=== PATIENT | female | born 1970 | race Caucasian/White ===

== ENCOUNTER 2023-10-21 09:57 | Inpatient (IN) | payer BC ==
--- NOTE | 2023-10-21 10:12 | ED ---
General Adult HPI - General Stated complaint: L Facial Numbness,NV Time Seen by Provider: 10/21/23 10:05 - History of Present Illness Initial comments: Dictation was produced using [employer] dictation software. please excuse any grammatical, word or spelling errors. Chief Complaint: 52-year-old female past medical history of stroke presents to the ER for vertigo and left facial numbness History of Present Illness: Is 52-year-old female she has past medical history of CVA and TIAs. States she will at approximately 8:00 AM. Patient states that she felt at baseline when she woke up. Then 30 minutes patient began having symptoms of vertigo and left facial numbness. Patient called EMS. According to EMS patient was vomiting severely. Patient has any headache. Denies any numbness or paresthesias or weakness in the extremities. She does complain of left lower facial paresthesias. States that her previous stroke deficits inv olved left side. States that she has vertigo at rest over worse when she moves her head. The ROS documented in this emergency department record has been reviewed and confirmed by me. Those systems with pertinent positive or negative responses have been documented in the HPI. All other systems are other negative and/or noncontributory. - Related Data Home Medications Medication Instructions Recorded Confirmed No Known Home Medications 10/21/23 10/21/23 Allergies Allergy/AdvReac Type Severity Reaction Status Date / Time No Known Allergies Allergy Verified 10/21/23 11:20 Review of Systems ROS Statement: Those systems with pertinent positive or pertinent negative responses have been documented in the HPI. ROS Other: All systems not noted in ROS Statement are negative. General Exam - General Exam Comments Initial Comments: PHYSICAL EXAM: General Impression: Alert and oriented x3, acute distress secondary to vomiting HEENT: Normocephalic atraumatic, extra-ocular movements intact, pupils equal and reactive to light bilaterally, mucous membranes moist. Cardiovascular: Heart regular rate and rhythm Chest: Able to complete full sentences, no retractions, no tachypnea Abdomen: abdomen soft, non-tender, non-distended, no organomegaly Musculoskeletal: Pulses present and equal in all extremities, no peripheral edema Motor: no focal deficits noted Neurological: Subjective sensory deficit to light touch of the left lower face, direction changing nystagmus, no focal motor or sensory deficits noted to the extremities Skin: Intact with no visualized rashes Psych: Normal affect and mood Course Vital Signs 10/21/23 10:32 Temperature 97.1 F L Pulse Rate 100 Respiratory 19 Rate Blood Pressure 152/88 O2 Sat by Pulse 91 L Oximetry - Reevaluation(s) Reevaluation #1: 10/21/23 10:52 A stroke patient. Case discussed with Dr. Parra of stroke at work. Patient not a candidate for stroke neurologist. Agree with recommendation. EKG Findings - EKG Comments: EKG Findings:: My EKG interpretation: Ventricular rate 73, sinus rhythm,. 181, QRS 81, QTC 418. No RI prolongation, no QTC prolongation, no ST or T-wave changes noted. No old EKG for comparison Overall, this EKG is unremarkable Medical Decision Making - Medical Decision Making Was pt. sent in by a medical professional or institution (, PA, LANDSCAPE FOREMAN, urgent care, hospital, or fpc...) When possible be specific @ -No Did you speak to anyone other than the patient for history (EMS, parent, family, police, friend...)? What history was obtained from this source @ -EMS as described above Did you review nursing and triage notes (agree or disagree)? Why? @ -I reviewed and agree with nursing and triage notes Were old charts reviewed (outside hosp., previous admission, EMS record, old EKG, old radiological studies, urgent care reports/EKG's, fpc records)? Report findings @ -No old charts were reviewed Differential Diagnosis (chest pain, altered mental status, abdominal pain women, abdominal pain men, vaginal bleeding, musculoskeletal, weakness, fever, dyspnea, syncope, headache, dizziness, GI bleed, back pain, seizure, CVA, palpatations, mental health)? @ - Differential CVA: Ischemic stroke, hemorrhagic stroke, brain tumor, atypical migraine, Wernicke's encephalopathy, seizure, multiple sclerosis, meningitis, encephalitis, hypoglycemia, Guillain-Estes, electrolytes disturbance, myasthenia gravis.... This is not meant to be an all-inclusive list EKG interpreted by me (3pts min.). @ -See above X-rays interpreted by me (1pt min.). @ -Chest x-ray shows no acute processes CT interpreted by me (1pt min.). @ -Computed tomography scan the brain shows no acute processes. CT angiography of the head and neck shows no large vessel occlusion U/S interpreted by me (1pt. min.). @ -None done What testing was considered but not performed or refused? (CT, X-rays, U/S, labs)? Why? @ -None What meds were considered but not given or refused? Why? @ -None Did you discuss the management of the patient with other professionals (professionals i.e. Dr., PA, LANDSCAPE FOREMAN, lab, RT, psych nurse, social worker clinical, admissions coordinator, teacher, commanding officer motorized squad, skilled nursing case manager)? Give summary @ -See above Was smoking cessation discussed for >3mins.? @ -No Was critical care preformed (if so, how long)? @ -, 33 minutes Were there social determinants of health that impacted care today? How? (Homelessness, low income, unemployed, alcoholism, drug addiction, transportation, low edu. Level, literacy, decrease access to med. care, [facility], rehab)? @ -No Was there de-escalation of care discussed even if they declined (Discuss DNR or withdrawal of care, Hospice)? DNR status @ -No What co-morbidities impacted this encounter? (DM, HTN, Smoking, COPD, CAD, Cancer, CVA, ARF, Chemo, Hep., AIDS, mental health diagnosis, sleep apnea, morbid obesity)? @ -History of CVA Was patient admitted / discharged? Hospital course, mention meds given and route, prescriptions, significant lab abnormalities, going to OR and other pertinent info. @ -52-year-old male presents emergency department for acute complaint of left lower facial weakness along with vertigo. Vital signs stable. NIH is 2. Patient had a candidate for outpatient place due to risk outweigh the benefits of alteplase administration. Vital signs stable. Patient's vertigo was treated with antivertigo medicines. CT brain is unremarkable. CT angiography shows no large vessel occlusion. Patient had a candidate for thrombectomy. There is concern for posterior CVA given that patient has a reaction changing nystagmus along with severe vertigo persisted at rest. Patient given aspirin. Patient admitted. Labs are unremarkable. Undiagnosed new problem with uncertain prognosis? @ -No Drug Therapy requiring intensive monitoring for toxicity (Heparin, Nitro, Insulin, Cardizem)? @ -No Were any procedures done? @ -No Diagnosis/symptom? Acute, or Chronic, or Acute on Chronic? Uncomplicated (with out systemic symptoms) or Complicated (systemic symptoms)? @ -Central vertigo Side effects of treatment? @ -No Exacerbation, Progression, or Severe Exacerbation? @ -No Poses a threat to life or bodily function? How? (Chest pain, USA, MT, pneumonia, PE, COPD, DKA, ARF, appy, cholecystitis, CVA, Diverticulitis, Homicidal, Suicidal, threat to staff... and all critical care pts) @ -yes - Lab Data Result diagrams: 10/21/23 10:15 10/21/23 10:15 Lab Results 10/21/23 10/21/23 10/21/23 Range/Units 10:15 10:15 10:15 WBC 10.7 H (3.8-10.6) k/uL RBC 4.98 (3.80-5.40) m/uL Hgb 13.9 (11.4-16.0) gm/dL Hct 42.0 (34.0-46.0) % MCV 84.3 (80.0-100.0) fL MCH 27.9 (25.0-35.0) pg MCHC 33.1 (31.0-37.0) g/dL RDW 14.6 (11.5-15.5) % Plt Count 232 (150-450) k/uL MPV 9.2 Neutrophils % 63 % Lymphocytes % 30 % Monocytes % 4 % Eosinophils % 2 % Basophils % 0 % Neutrophils # 6.7 (1.3-7.7) k/uL Lymphocytes # 3.2 (1.0-4.8) k/uL Monocytes # 0.4 (0-1.0) k/uL Eosinophils # 0.2 (0-0.7) k/uL Basophils # 0.0 (0-0.2) k/uL PT 10.1 (10.0-12.5) sec INR 0.9 (<1.2) APTT 20.6 L (22.0-30.0) sec Sodium 139 (137-145) mmol/L Potassium 3.9 (3.5-5.1) mmol/L Chloride 105 (98-107) mmol/L Carbon Dioxide 20 L (22-30) mmol/L Anion Gap 14 mmol/L BUN 10 (7-17) mg/dL Creatinine 0.53 (0.52-1.04) mg/dL Est GFR (CKD-EPI)AfAm >90 (>60 ml/min/1.73 sqM) Est GFR (CKD-EPI)NonAf >90 (>60 ml/min/1.73 sqM) Glucose 137 H (74-99) mg/dL Calcium 9.3 (8.4-10.2) mg/dL Total Bilirubin 0.5 (0.2-1.3) mg/dL AST 23 (14-36) U/L ALT 26 (4-34) U/L Alkaline Phosphatase 101 (38-126) U/L Creatine Kinase 57 (30-135) U/L Troponin I (0.000-0.034) ng/mL Total Protein 7.1 (6.3-8.2) g/dL Albumin 4.2 (3.5-5.0) g/dL 10/21/23 Range/Units 10:15 WBC (3.8-10.6) k/uL RBC (3.80-5.40) m/uL Hgb (11.4-16.0) gm/dL Hct (34.0-46.0) % MCV (80.0-100.0) fL MCH (25.0-35.0) pg MCHC (31.0-37.0) g/dL RDW (11.5-15.5) % Plt Count (150-450) k/uL MPV Neutrophils % % Lymphocytes % % Monocytes % % Eosinophils % % Basophils % % Neutrophils # (1.3-7.7) k/uL Lymphocytes # (1.0-4.8) k/uL Monocytes # (0-1.0) k/uL Eosinophils # (0-0.7) k/uL Basophils # (0-0.2) k/uL PT (10.0-12.5) sec INR (<1.2) APTT (22.0-30.0) sec Sodium (137-145) mmol/L Potassium (3.5-5.1) mmol/L Chloride (98-107) mmol/L Carbon Dioxide (22-30) mmol/L Anion Gap mmol/L BUN (7-17) mg/dL Creatinine (0.52-1.04) mg/dL Est GFR (CKD-EPI)AfAm (>60 ml/min/1.73 sqM) Est GFR (CKD-EPI)NonAf (>60 ml/min/1.73 sqM) Glucose (74-99) mg/dL Calcium (8.4-10.2) mg/dL Total Bilirubin (0.2-1.3) mg/dL AST (14-36) U/L ALT (4-34) U/L Alkaline Phosphatase (38-126) U/L Creatine Kinase (30-135) U/L Troponin I <0.012 (0.000-0.034) ng/mL Total Protein (6.3-8.2) g/dL Albumin (3.5-5.0) g/dL Disposition Clinical Impression: Cerebrovascular accident (CVA) Disposition: [facility] Condition: Fair Referrals: Nonstaff,Physician [Primary Care Provider] - 1-2 days Decision Time: 11:44
[2023-10-21 10:40] LABS: Basophils % (A) 0 %; Eosinophils # (A) 0.2 k/uL (0-0.7); Eosinophils % (A) 2 %; HGB 13.9 gm/dL (11.4-16.0); Lymphocytes # (A) 3.2 k/uL (1.0-4.8); Lymphocytes % (A) 30 %; MCH 27.9 pg (25.0-35.0); MCHC 33.1 g/dL (31.0-37.0); MCV 84.3 fL (80.0-100.0); Mean Platelet Volume 9.2; Monocytes # (A) 0.4 k/uL (0-1.0); Monocytes % (A) 4 %; Neutrophils # (A) 6.7 k/uL (1.3-7.7); Neutrophils % (A) 63 %; Platelet Count 232 k/uL (150-450); RBC 4.98 m/uL (3.80-5.40); RDW 14.6 % (11.5-15.5); WBC 10.7 k/uL (3.8-10.6)
--- NOTE | 2023-10-21 10:42 | XR ---
EXAMINATION TYPE: XR chest 2V DATE OF EXAM: 10/21/2023 10:37 AM CLINICAL INDICATION:Female, 52 years old with history of altered mental status; COMPARISON: None TECHNIQUE: XR chest 2V Frontal and lateral views of the chest. FINDINGS: Lungs/Pleura: There is no evidence of pleural effusion, focal consolidation, or pneumothorax. Pulmonary vascularity: Unremarkable. Heart/mediastinum: Cardiomediastinal silhouette is unremarkable. Musculoskeletal: No acute osseous pathology. IMPRESSION: No acute cardiopulmonary disease/process.
[2023-10-21 10:54] LABS: ALT 26 U/L (4-34); AST 23 U/L (14-36); African American GFR (CKD) >90 (>60 ml/min/1.73 sqM); Albumin 4.2 g/dL (3.5-5.0); Alkaline Phosphatase 101 U/L (38-126); Anion Gap 14 mmol/L; Blood Urea Nitrogen 10 mg/dL (7-17); Calcium 9.3 mg/dL (8.4-10.2); Carbon Dioxide 20 mmol/L (22-30); Chloride 105 mmol/L (98-107); Creatine Kinase 57 U/L (30-135); Glucose 137 mg/dL (74-99); Non-African American GFR(CKD) >90 (>60 ml/min/1.73 sqM); Potassium 3.9 mmol/L (3.5-5.1); Sodium 139 mmol/L (137-145); Total Bilirubin 0.5 mg/dL (0.2-1.3); Total Protein 7.1 g/dL (6.3-8.2)
[2023-10-21 10:56] LABS: INR 0.9 (<1.2); Partial Thromboplastin Time 20.6 sec (22.0-30.0); Prothrombin Time 10.1 sec (10.0-12.5)
--- NOTE | 2023-10-21 10:56 | CT ---
EXAMINATION TYPE: CT brain wo con CT DLP: 1091.5 mGycm, Automated exposure control for dose reduction was used. DATE OF EXAM: 10/21/2023 10:48 AM COMPARISON: None. CLINICAL INDICATION:Female, 52 years old with history of Neuro deficit, acute, stroke suspected, CODE STROKE TECHNIQUE: Brain: Axial CT images of the brain were obtained with coronal and sagittal reformats created and rev iewed. Contrast used: None. Oral contrast used: None. FINDINGS: Brain: Extra-axial spaces: No abnormal extra-axial fluid collections. Ventricular system: Within normal limits Cerebral parenchyma: No acute intraparenchymal hemorrhage or mass effect. The washing[place]-white junction is well differentiated. Cerebellum: Unremarkable. Mass effect: No evidence of midline shift. Intracranial vasculature: Atherosclerotic calcifications of the intracranial vessels. Soft tissues: Normal. Calvarium/osseous structures: No depressed skull fracture. Paranasal sinuses and mastoid air cells: Mild scattered paranasal sinus disease. Visualized orbits: Orbital contents are intact. IMPRESSION: No acute intracranial process.
--- NOTE | 2023-10-21 11:31 | CT ---
EXAMINATION TYPE: CT angio head neck DATE OF EXAM: 10/21/2023 COMPARISON: CT brain same day HISTORY: 52-year-old female neurologic deficit, acute, stroke suspected Neuro deficit, acute, stroke suspected TECHNIQUE: Contiguous axial scanning of the head and neck performed with IV Contrast, patient injecte d with 65 ml mL of Isovue 300. Coronal/sagittal MIP reconstructions performed. 3-D reconstructions ge nerated on a dedicated independent workstation. CT DLP: 778.8 mGycm Automated exposure control for dose reduction was used. FINDINGS: Neck: Left vertebral artery directly from the aortic arch. The right vertebral artery is slightly more daniella nant. Both vertebral arteries are patent throughout their course. The right common right internal carotid arteries are widely patent. The left common and left internal carotid arteries are widely patent. There may be an underlying nodule of the left thyroid gland measuring 1.1 cm that could be further ev aluated with outpatient thyroid ultrasound. Head: Dominant right vertebral artery. Otherwise, the vertebral and basilar arteries are patent. Patent thao ateral posterior communicating arteries are noted. Remainder of the posterior circulation also appear s patent. Hypoplastic left transverse sinus. Otherwise, dural venous sinuses appear patent. The bilateral internal carotid arteries as well as the remainder of the anterior circulation is paten t. No aneurysmal change is seen. IMPRESSION: 1. NECK: WIDELY PATENT VERTEBRAL AND CAROTID ARTERIES OF THE NECK. THERE IS ANATOMIC VARIATION WITH D IRECT TAKEOFF OF THE LEFT VERTEBRAL ARTERY DIRECTLY FROM THE AORTIC ARCH. DOMINANT RIGHT VERTEBRAL AR MARIELLE. 2. HEAD: NO LARGE VESSEL INTRACRANIAL ARTERIAL OCCLUSION, SIGNIFICANT STENOSIS, OR ANEURYSMAL CHANGE IS SEEN.
[2023-10-21] MEDS ORDERED: ASPIRIN 81 MG PO STA (11:34)
[2023-10-21] MEDS ORDERED: METOCLOPRAMIDE 5 MG/ML 2 ML VIAL IVP STA (11:37)
[2023-10-21] MEDS ORDERED: NALOXONE 0.4 MG/ML 1 ML VIAL IV PRN (11:40)
[2023-10-21] MEDS: SODIUM CHLORIDE 0.9% 1,000 ML IV SCH ×2 (12:40→20:13)
[2023-10-21] MEDS ORDERED: ACETAMINOPHEN TAB 325 MG TAB PO PRN (13:35)
[2023-10-21] MEDS ORDERED: ONDANSETRON 4 MG in SODIUM CHLORIDE 0.9% 50 ML IVPB PRN (13:35)
[2023-10-21] MEDS: ONDANSETRON 4 MG/2 ML VIAL IVP PRN ×2 (13:55→21:33)
[2023-10-21] MEDS: ATORVASTATIN 20 MG TAB PO SCH (13:55)
--- NOTE | 2023-10-21 14:29 | P.HPIM ---
History of Present Illness This is a pleasant 52 years old female with past medical history of multiple medical problems. She has history of stroke in 2012, at that time she had blurred vision and aphasia. Currently she is not taking any antiplatelet therap y. Patient presents because of new onset of vertigo and everything was spinning and she describes since 8:30 this morning. Also associated with numbness on her left side of the cheek and tongue happened at the same time. No headache, no weakness or numbness. No double vision or slurred speech. She's been vomiting for sleep in the way to the hospital, while she was in the emergency room also she threw up several times. She denies chest pain or dyspnea. No abdominal pain or diarrhea. No urinary complaints. She denies smoking or alcohol or illicit drugs. Patient is hemodynamically stable, blood pressure 151/90. Labs were unremarkable including CBC, INR, BMP, liver enzymes and troponin She is having marked increased WBCs 10.7. CT of the brain is negative for acute process CT of the head and neck is negative for acute process, no aneurysm or dilatation, no cervical fracture chest x-ray is negative for acute process EKG showing normal sinus rhythm at 73, no significant ST-T changes and QTC 418 Review of Systems Review of systems CONSTITUTIONAL: No fever, no malaise, no fatigue. HEENT: No recent visual problems or hearing problems. Denied any sore throat. CARDIOVASCULAR: No orthopnea, PND, no palpitations, no syncope. PULMONARY: No shortness of breath, no cough, no hemoptysis. GASTROINTESTINAL: No diarrhea, no nausea, no vomiting, no abdominal pain. Normoactive bowel sounds. NEUROLOGICAL: No headaches, no weakness, no numbness. HEMATOLOGICAL: Denies any bleeding or petechiae. GENITOURINARY: Denies any burning micturition, frequency, or urgency. MUSCULOSKELETAL/RHEUMATOLOGICAL: Denies any joint pain, swelling, or any muscle pain. ENDOCRINE: Denies any polyuria or polydipsia. Past Medical History Past Medical History: CVA/TIA History of Any Multi-Drug Resistant Organisms: None Reported Past Surgical History: Hysterectomy Smoking Status: Never smoker Past Alcohol Use History: Occasional Past Drug Use History: None Reported Medications and Allergies Home Medications Medication Instructions Recorded Confirmed Type No Known Home Medications 10/21/23 10/21/23 History Allergies Allergy/AdvReac Type Severity Reaction Status Date / Time No Known Allergies Allergy Verified 10/21/23 11:20 Physical Exam Vitals: Vital Signs Temp Pulse Resp BP Pulse Ox 10/21/23 13:00 72 17 156/91 97 10/21/23 12:00 151/90 10/21/23 11:37 100 168/71 97 10/21/23 10:32 97.1 F L 100 19 152/88 91 L Intake and Output 10/20/23 10/21/23 10/21/23 22:59 06:59 14:59 Other: Weight 108.862 kg GENERAL: The patient is alert and oriented x3, not in any acute distress. Well developed, well nourished. HEENT: Pupils are round and equally reacting to light. EOMI. No scleral icterus. No conjunctival pallor. Normocephalic, atraumatic. No pharyngeal erythema. No thyromegaly. CARDIOVASCULAR: S1 and S2 present. No murmurs, rubs, or gallops. PULMONARY: Chest is clear to auscultation, no wheezing , no crackles. ABDOMEN: Soft, nontender, nondistended, normoactive bowel sounds. No palpable organomegaly. MUSCULOSKELETAL: No joint swelling or deformity. EXTREMITIES: No cyanosis, clubbing, or pedal edema. NEUROLOGICAL: Gross neurological examination did not reveal any focal deficits. SKIN: No rashes. no petechiae. Results CBC & Chem 7: 10/21/23 10:15 10/21/23 10:15 Labs: Abnormal Lab Results - Last 24 Hours (Table) 10/21/23 10/21/23 10/21/23 Range/Units 10:15 10:15 10:15 WBC 10.7 H (3.8-10.6) k/uL APTT 20.6 L (22.0-30.0) sec Carbon Dioxide 20 L (22-30) mmol/L Glucose 137 H (74-99) mg/dL Assessment and Plan Assessment: Acute onset of vertigo and left-sided facial numbness suspicious for stroke Recurrent vomiting could be secondary to above Dehydration secondary to above Obesity with BMI of 36.5. History of stroke/TIA Permissive hypertension Plan: Start aspirin 81 mg, patient got 325 mg 1 in the emergency room Start Lipitor 20 mg Check KUB Neurology consult Labs and medication were reviewed.. Continue same treatment. Continue with symptomatic treatment. Resume home medication. Monitor labs and vitals. DVT and GI prophylaxis. Further recommendations as per clinical course of the patient DVT prophylaxis: Subcutaneous heparin GI Prophylaxis: Pepcid PT/OT: Pending Prognosis is guarded
--- NOTE | 2023-10-21 17:01 | XR ---
EXAMINATION TYPE: XR KUB DATE OF EXAM: 10/21/2023 3:06 PM CLINICAL INDICATION:Female, 52 years old with history of Vomiting; COMPARISON: None. TECHNIQUE: One radiographic view of the abdomen was obtained. FINDINGS: The bowel gas pattern is nonspecific without dilated loops of small or large bowel. There i s no evidence for organomegaly or pneumoperitoneum. The osseous structures are intact. No abnormal calcifications are present. Fecal material and gas are demonstrated throughout the colon and rectum. Right lower quadrant cholecystectomy clips. Excreted IV contrast within the urinary bladder. IMPRESSION: Nonspecific bowel gas pattern without radiographic evidence for acute process.
--- NOTE | 2023-10-21 17:40 | P.CNNES ---
History of Present Illness Consult date: 10/21/23 Requesting physician: Dorian Ruff Reason for Consult: code stroke, vertigo and left facial numbness History of Present Illness: This is a 52-year-old woman who presented emergency department because of dizziness and the numbness. Patient states that the around 8:45 AM today she noticed that that she's having dizziness as well as numbness over the left tongue. Prior to that she was doing well earlier in the morning. She does have nausea and vomiting. She feels the dizziness is if the room is spinning and the is alleviated with resting. She has chronic ringing of the ear. Denies of any focal weakness denies of any other numbness. She states that she had history of TIA in the past in which he had visual disturbance and speech difficulty years back. She has hypercholesteremia. Some of the workup during his hospital visit consisted of: CT of the head was negative for any acute processes. CT angiography of the head and neck did not show any large vessel occlusion. A code stroke was activated by ED team. NIH stroke scale was a 2. No IV TPA since the risk outweighed the benefit per the ED team. Review of Systems Review of system: The 12 point system was reviewed and apparent positive and negative per HPI. Past Medical History Past Medical History: CVA/TIA History of Any Multi-Drug Resistant Organisms: None Reported Past Surgical History: Hysterectomy Smoking Status: Never smoker Past Alcohol Use History: Occasional Past Drug Use History: None Reported Medications and Allergies Home Medications Medication Instructions Recorded Confirmed Type No Known Home Medications 10/21/23 10/21/23 History Allergies Allergy/AdvReac Type Severity Reaction Status Date / Time No Known Allergies Allergy Verified 10/21/23 11:20 Physical Examination - Vital Signs Vital Signs: Vital Signs Temp Pulse Resp BP Pulse Ox 10/21/23 14:21 70 18 150/88 96 10/21/23 14:00 85 18 154/87 96 10/21/23 13:51 85 18 154/87 96 10/21/23 13:21 70 17 152/78 97 10/21/23 13:00 72 17 156/91 97 10/21/23 12:51 77 18 150/84 96 10/21/23 12:21 71 17 163/88 96 10/21/23 12:00 151/90 10/21/23 11:51 83 18 153/76 97 10/21/23 11:37 100 168/71 97 10/21/23 11:36 73 18 168/71 96 10/21/23 11:21 73 18 168/71 95 10/21/23 11:06 82 18 148/78 10/21/23 10:51 73 17 146/78 10/21/23 10:36 156/117 10/21/23 10:32 97.1 F L 100 19 152/88 91 L 10/21/23 10:06 82 18 145/110 Intake and Output 10/21/23 10/21/23 10/21/23 06:59 14:59 22:59 Other: Weight 108.862 kg GENERAL: The patient is lying in bed and is not in acute distress.. NEUROLOGICAL: Higher mental function: The patient is awake, alert, oriented to self, place and time. Patient is following commands. No aphasia and no neglect. Cranial nerves: The pupils are round, equal and reactive to light. Visual field s are full to confrontation throughout. Extraocular movement is rotatory nystagmus looking to right and left. Facial sensation is normal to touch throughout. The facial strength is normal throughout. Hearing is normal bilaterally to hand rub. Tongue is midline and moved [id number] without any difficulty. No dysarthria is noted. Shoulder shrug is normal bilaterally. Motor: The strength is unable to assess individual muscle strength because of her cooperation but lifting all extremities above gravity and appears symmetrical. Normal tone and bulk. Cerebellum: Normal finger to nose bilaterally. Sensation: Sensation is normal to touch throughout. Reflexes (right/left): 2+ throughout. Plantars are downgoing bilaterally. Results - Laboratory Findings CBC and BMP: 10/21/23 10:15 10/21/23 10:15 Abnormal Lab Findings: Abnormal Labs 10/21/23 10/21/23 10/21/23 10:15 10:15 10:15 WBC 10.7 H APTT 20.6 L Carbon Dioxide 20 L Glucose 137 H Assessment and Plan Assessment: This is a 52-year-old woman who presents because of dizziness and numbness. She states she has numbness over left side of the tongue. Her dizziness is mostly with movement and she feels the room is spinning. She has nausea vomiting. On examination she has nystagmus looking to the right and left. Acute vertigo with numbness: Probable acute ischemic stroke. Rule out peripheral vertigo. Denies stroke scale in the ED is to know IV TPA because of the risk outweighed the benefit History of TIA Plan: I ordered MRI of the brain with and without. Patient was given aspirin 325 once in the ED. Patient was started on aspirin 81 mg by the primary team as well as Lipitor 20 mg daily. The patient was not on any antiplatelets prior to this. If the patient does have stroke will start the patient on dual antiplatelet of aspirin and Plavix. Ordered lipid panel, 2-D echo Continue neuro checks Cardiac monitoring PT OT and SHOT PACKER are consulted Patient was given Valium 5 mg once by the ED team. I showed the patient on meclizine 25 mg 1 tablet 4 times a day scheduled for 7 days and after that when necessary. She is on Zofran 4 mg when necessary. We'll defer the rest of the medical measure the primary team For DVT prophylaxis the patient was started on subcu heparin 5000 units every 12 hours The plan was discussed with the patient and the primary attending Thank you consultation. Time with Patient: Greater than 30
[2023-10-21] MEDS: MECLIZINE 25 MG TAB PO SCH ×2 (20:12→21:38)
[2023-10-21 20:54] LABS: Glucose,Whole Blood 150 mg/dL (70-110)
[2023-10-21] MEDS: HEPARIN SODIUM,PORCINE 5,000 UNIT/ML 1 ML VIAL SQ SCH (21:36)
[2023-10-21] MEDS: FAMOTIDINE 20 MG/2 ML VIAL IV SCH (21:50)
[2023-10-22 02:28] LABS: Chol/HDL Ratio 3.94 Ratio; LDL Cholesterol,Calculated 105.4 mg/dL (0.0-131.0)
[2023-10-22] MEDS: SODIUM CHLORIDE 0.9% 1,000 ML IV SCH ×3 (06:35→21:12)
[2023-10-22 07:21] LABS: Basophils % (A) 0 %; Eosinophils % (A) 0 %; HCT 37.3 % (34.0-46.0); HGB 12.6 gm/dL (11.4-16.0); Lymphocytes # (A) 1.7 k/uL (1.0-4.8); Lymphocytes % (A) 14 %; MCH 28.8 pg (25.0-35.0); MCHC 33.8 g/dL (31.0-37.0); MCV 85.1 fL (80.0-100.0); Mean Platelet Volume 9.5; Monocytes # (A) 0.7 k/uL (0-1.0); Monocytes % (A) 5 %; Neutrophils # (A) 9.6 k/uL (1.3-7.7); Neutrophils % (A) 79 %; Platelet Count 215 k/uL (150-450); RBC 4.38 m/uL (3.80-5.40); RDW 14.6 % (11.5-15.5); WBC 12.2 k/uL (3.8-10.6)
[2023-10-22 07:48] LABS: African American GFR (CKD) >90 (>60 ml/min/1.73 sqM); Anion Gap 11 mmol/L; Blood Urea Nitrogen 11 mg/dL (7-17); Calcium 8.2 mg/dL (8.4-10.2); Carbon Dioxide 23 mmol/L (22-30); Chloride 104 mmol/L (98-107); Glucose 119 mg/dL (74-99); Non-African American GFR(CKD) >90 (>60 ml/min/1.73 sqM); Potassium 4.1 mmol/L (3.5-5.1); Sodium 138 mmol/L (137-145)
[2023-10-22] MEDS ORDERED: ONDANSETRON 4 MG/2 ML VIAL IVP PRN (08:05)
[2023-10-22] MEDS: ATORVASTATIN 20 MG TAB PO SCH (09:23)
[2023-10-22] MEDS: MECLIZINE 25 MG TAB PO SCH ×4 (09:23→21:11)
[2023-10-22] MEDS: HEPARIN SODIUM,PORCINE 5,000 UNIT/ML 1 ML VIAL SQ SCH ×2 (09:23→21:11)
[2023-10-22] MEDS: FAMOTIDINE 20 MG/2 ML VIAL IV SCH ×2 (09:23→21:11)
[2023-10-22] MEDS: ASPIRIN 81 MG PO SCH (09:23)
[2023-10-22] MEDS ORDERED: LORazepam 2 MG/ML INJ IV ONE (09:46)
--- NOTE | 2023-10-22 11:45 | P.PN ---
Subjective This is a pleasant 52 years old female with past medical history of multiple medical problems. She has history of stroke in 2012, at that time she had blurred vision and aphasia. Currently she is not taking any antiplatelet therapy. Patient presents because of new onset of vertigo and everything was spinning and she describes since 8:30 this morning. Also associated with numbness on her left side of the cheek and tongue happened at the same time. No headache, no weakness or numbness. No double vision or slurred speech. She's been vomiting for sleep in the way to the hospital, while she was in the emergency room also she threw up several times. She denies chest pain or dyspnea. No abdominal pain or diarrhea. No urinary complaints. She denies smoking or alcohol or illicit drugs. Patient is hemodynamically stable, blood pressure 151/90. Labs were unremarkable including CBC, INR, BMP, liver enzymes and troponin She is having marked increased WBCs 10.7. CT of the brain is negative for acute process CT of the head and neck is negative for acute process, no aneurysm or dilatation, no cervical fracture chest x-ray is negative for acute process EKG showing normal sinus rhythm at 73, no significant ST-T changes and QTC 418 10/22/2023 Patient still complaining of vertigo, still complaining of numbness in her left side of the face and her lips. Take her meclizine because of her severe nausea vomiting, she could not eat as well. Zofran 4 mg was not helping therefore we increased the dose to 8 mg, after that I checked with the bedside nurse and looks like patient started to respond to this treatment therefore we'll keep monitoring for now. KUB yesterday was negative for diagnostic process. WBCs 12,000, TSH normal 0.8 MRI of the brain and echocardiogram are pending She remains on normal saline with 30 mL per hour, baby aspirin 81 mg Lipitor Plan of care discussed with the patient and bedside nurse Review of systems CONSTITUTIONAL: No fever, no malaise, no fatigue. HEENT: No recent visual problems or hearing problems. Denied any sore throat. CARDIOVASCULAR: No orthopnea, PND, no palpitations, no syncope. PULMONARY: No shortness of breath, no cough, no hemoptysis. GASTROINTESTINAL: No diarrhea, no nausea, no vomiting, no abdominal pain. Normoactive bowel sounds. Active Medications Generic Name Dose Route Start Last Admin Trade Name Freq PRN Reason Stop Dose Admin Acetaminophen 325 mg 10/21/23 13:35 Acetaminophen Tab 325 Mg Tab PO Q6HR PRN Fever and/ or Pain Aspirin 81 mg 10/22/23 09:00 10/22/23 09:23 Aspirin 81 Mg PO 81 mg DAILY LETICIA Administration Atorvastatin Calcium 20 mg 10/21/23 13:45 10/22/23 09:23 Atorvastatin 20 Mg Tab PO 20 mg DAILY LETICIA Administration Famotidine 20 mg 10/21/23 21:00 10/22/23 09:23 Famotidine 20 Mg/2 Ml Vial IV 20 mg Q12HR LETICIA Administration Heparin Sodium (Porcine) 5,000 unit 10/21/23 21:00 10/22/23 09:23 Heparin Sodium,Porcine 5,000 Unit/Ml 1 Ml Vial SQ 5,000 unit Q12HR LETICIA Administration Sodium Chloride 1,000 mls @ 130 mls/hr 10/21/23 11:45 10/22/23 06:35 Saline 0.9% IV 130 mls/hr .[id number] LETICIA Administration Meclizine HCl 25 mg 10/21/23 18:00 10/22/23 09:23 Meclizine 25 Mg Tab PO 25 mg QID LETICIA Administration Naloxone HCl 0.2 mg 10/21/23 11:40 Naloxone 0.4 Mg/Ml 1 Ml Vial IV Q2M PRN Opioid Reversal Ondansetron HCl 8 mg 10/22/23 08:05 10/22/23 09:23 Ondansetron 4 Mg/2 Ml Vial IVP 8 mg Q8HR PRN Administration Nausea And Vomiting Objective - Vital Signs Vital signs: Vital Signs Temp 98.2 F 10/22/23 04:00 Pulse 96 10/22/23 04:00 Resp 16 10/22/23 04:00 BP 127/79 10/22/23 04:00 Pulse Ox 96 10/22/23 04:00 FiO2 Intake & Output 10/21/23 10/22/23 10/22/23 18:59 06:59 18:59 Output Total 1000 Balance -1000 Weight 108.862 kg 108.862 kg Output: Urine 1000 Straight 1000 Other: Voiding Method External Catheter # Bowel Movements 0 - Exam GENERAL: The patient is alert and oriented x3, not in any acute distress. Well developed, well nourished. HEENT: Pupils are round and equally reacting to light. EOMI. No scleral icterus. No conjunctival pallor. Normocephalic, atraumatic. No pharyngeal erythema. No thyromegaly. CARDIOVASCULAR: S1 and S2 present. No murmurs, rubs, or gallops. PULMONARY: Chest is clear to auscultation, no wheezing , no crackles. ABDOMEN: Soft, nontender, nondistended, normoactive bowel sounds. No palpable organomegaly. MUSCULOSKELETAL: No joint swelling or deformity. EXTREMITIES: No cyanosis, clubbing, or pedal edema. NEUROLOGICAL: Gross neurological examination did not reveal any focal deficits. SKIN: No rashes. no petechiae. - Labs CBC & Chem 7: 10/22/23 07:07 10/22/23 07:07 Labs: Abnormal Lab Results - Last 24 Hours (Table) 10/21/23 10/21/23 10/22/23 Range/Units 10:33 20:48 07:07 WBC 12.2 H (3.8-10.6) k/uL Neutrophils # 9.6 H (1.3-7.7) k/uL Glucose (74-99) mg/dL POC Glucose (mg/dL) 150 H (70-110) mg/dL Calcium (8.4-10.2) mg/dL Triglycerides 208.00 H (0.00-149.00) mg/dL VLDL Cholesterol, Calc 41.60 H (5.00-40.00) mg/dL 10/22/23 Range/Units 07:07 WBC (3.8-10.6) k/uL Neutrophils # (1.3-7.7) k/uL Glucose 119 H (74-99) mg/dL POC Glucose (mg/dL) (70-110) mg/dL Calcium 8.2 L (8.4-10.2) mg/dL Triglycerides (0.00-149.00) mg/dL VLDL Cholesterol, Calc (5.00-40.00) mg/dL Assessment and Plan Assessment: Acute onset of vertigo and left-sided facial numbness suspicious for stroke Recurrent vomiting could be secondary to above Dehydration secondary to above Obesity with BMI of 36.5. History of stroke/TIA Permissive hypertension Plan: c/w aspirin 81 mg Start Lipitor 20 mg Follow-up echocardiogram and MRI of the brain Neurology consult Zofran 8 mg Labs and medication were reviewed.. Continue same treatment. Continue with symptomatic treatment. Resume home medication. Monitor labs and vitals. DVT and GI prophylaxis. Further recommendations as per clinical course of the patient DVT prophylaxis: Subcutaneous heparin GI Prophylaxis: Pepcid PT/OT: Pending Prognosis is guarded
--- NOTE | 2023-10-22 11:51 | CA ---
Transthoracic Echo Report Name: Patti Sánchez Age: 52 Gender: F : 1970 Exam Date: 10/22/2023 08:35 Exam Location: [place] [facility] Ht (in): 68 Wt (lb): 240 Ordering Physician: Keron Garza MD Attending/Referring Phys: Lesson Instructor Laverne Radford [facility] Procedure CPT: Indications: stroke Cardiac Hx: Technical Quality: Technically difficult study Contrast 1: Agitated Saline Total Dose (mL): 5 Contrast 2: Total Dose (mL): MEASUREMENTS (Male / Female) Normal Values 2D ECHO LV Diastolic Diameter PLAX 4.3 cm 4.2 - 5.9 / 3.9 - 5.3 cm LV Systolic Diameter PLAX 2.9 cm IVS Diastolic Thickness 0.9 cm 0.6 - 1.0 / 0.6 - 0.9 cm LVPW Diastolic Thickness 0.9 cm 0.6 - 1.0 / 0.6 - 0.9 cm LV Relative Wall Thickness 0.4 LVOT Diameter 2.0 cm Ascending Aorta Diameter 3.0 cm M-MODE Aortic Root Diameter MM 2.4 cm LA Systolic Diameter MM 2.5 cm LA Ao Ratio MM 1.1 AV Cusp Separation MM 1.6 cm DOPPLER AV Peak Velocity 174.2 cm/s AV Peak Gradient 12.1 mmHg AV Mean Velocity 117.9 cm/s AV Mean Gradient 6.4 mmHg AV Velocity Time Integral 32.1 cm LVOT Peak Velocity 119.5 cm/s LVOT Peak Gradient 5.7 mmHg LVOT Velocity Time Integral 26.0 cm LVOT Stroke Volume 80.5 cm??? LVOT Stroke Volume Index 36.5 ml/m??? LVOT Cardiac Index 2696.8 cm???/min???m??? AV Area Cont Eq vti 2.5 cm??? AV Area Cont Eq pk 2.1 cm??? Mitral E Point Velocity 90.1 cm/s Mitral A Point Velocity 91.6 cm/s Mitral E to A Ratio 1.0 MV Deceleration Time 221.3 ms LV E' Lateral Velocity 9.5 cm/s Mitral E to LV E' Lateral Ratio 9.5 LV E' Septal Velocity 8.1 cm/s Mitral E to LV E' Septal Ratio 11.2 TR Peak Velocity 263.4 cm/s TR Peak Gradient 27.7 mmHg Right Atrial Pressure 8.0 mmHg Pulmonary Artery Systolic Pressu 35.7 mmHg Right Ventricular Systolic Press 35.7 mmHg FINDINGS Left Ventricle Left ventricular wall thickness normal. Left ventricular cavity size normal. Normal left ventricular systolic function with no obvious regional wall motion abnormalities. Left ventricular ejection fraction is estimated at 55-60%. Right Ventricle Right ventricle not well visualized. Right Atrium Normal right atrial size. Negative agitated saline bubble study for right to left shunt. Left Atrium Normal left atrial size. Mitral Valve Mitral valve thickened. Mild mitral regurgitation. Aortic Valve Trileaflet aortic valve. No aortic regurgitation. Tricuspid Valve Tricuspid valve not well visualized. [id number] tricuspid regurgitation. Pulmonic Valve Pulmonic valve not well visualized. Trace pulmonic regurgitation. Pericardium No pericardial effusion. Aorta Normal size aortic root and proximal ascending aorta. CONCLUSIONS Left ventricular ejection fraction 55-60% Negative bubble study Mild mitral regurgitation [id number] tricuspid regurgitation No pericardial effusion Previewed by: Dr. Calvin Hinson DO (Electronically Signed) Final Date: 22 October 2023 11:51
--- NOTE | 2023-10-22 14:52 | P.PN ---
Subjective Progress Note Date: 10/22/23 I am following-up with patient and she states she is feeling better. She feels dizziness is improving compared to yesterday. Also nausea and vomiting is improving. Still has numbness on left side of tongue. Denies any focal weakness. Objective - Vital Signs Vital signs: Vital Signs Temp 98.4 F 10/22/23 12:00 Pulse 80 10/22/23 12:00 Resp 16 10/22/23 12:00 BP 139/84 10/22/23 12:00 Pulse Ox 98 10/22/23 12:00 FiO2 Intake & Output 10/21/23 10/22/23 10/22/23 18:59 06:59 18:59 Intake Total 118 Output Total 1000 Balance -1000 118 Weight 108.862 kg 108.862 kg Intake: Oral 118 Output: Urine 1000 Straight 1000 Other: Voiding Method External Catheter External Catheter # Bowel Movements 0 - Exam GENERAL: The patient is sitting in a recliner chair and is not in acute distress. NEUROLOGICAL: Higher mental function: The patient is awake, alert, oriented to self, place and time. Patient is following commands. No aphasia and no neglect. Cranial nerves: The pupils are round, equal and reactive to light. Visual gutierrez are full to confrontation throughout. Extraocular movement is intact and no nystagmus Facial sensation is normal to touch throughout. The facial strength is normal throughout. Tongue is midline and moved [id number] without any difficulty. No dysarthria is noted. Shoulder shrug is normal bilaterally. Motor: The strength is 5/5 throughout. Normal tone and bulk. Cerebellum: Normal finger to nose and heel to george bilaterally. Sensation: Sensation is normal to touch throughout. Reflexes (right/left): 2+ throughout. Plantars are downgoing bilaterally. Some of the workup during this hospital visit consisted of: Lipid panel triglycerides 28, cholesterol is 197, LDL is 105 and HDL is 50 TSH is 0.884 [address]c is 5.6. CT of the head was negative for any acute processes. CT angiography of the head and neck did not show any large vessel occlusion. 2D Echo was reported as ejection fraction of 55-60%. Negative bubble study. Mild to moderate tricuspid regurgitation. - Labs CBC & Chem 7: 10/22/23 07:07 10/22/23 07:07 Labs: Abnormal Lab Results - Last 24 Hours (Table) 10/21/23 10/21/23 10/22/23 Range/Units 10:33 20:48 07:07 WBC 12.2 H (3.8-10.6) k/uL Neutrophils # 9.6 H (1.3-7.7) k/uL Glucose (74-99) mg/dL POC Glucose (mg/dL) 150 H (70-110) mg/dL Calcium (8.4-10.2) mg/dL Triglycerides 208.00 H (0.00-149.00) mg/dL VLDL Cholesterol, Calc 41.60 H (5.00-40.00) mg/dL 10/22/23 Range/Units 07:07 WBC (3.8-10.6) k/uL Neutrophils # (1.3-7.7) k/uL Glucose 119 H (74-99) mg/dL POC Glucose (mg/dL) (70-110) mg/dL Calcium 8.2 L (8.4-10.2) mg/dL Triglycerides (0.00-149.00) mg/dL VLDL Cholesterol, Calc (5.00-40.00) mg/dL Assessment and Plan Assessment: This is a 52-year-old woman who presents because of dizziness and numbness. She states she has numbness over left side of the tongue. Her dizziness is mostly with movement and she feels the room is spinning. She has nausea vomiting. On examination she has nystagmus looking to the right and left. Acute vertigo with numbness: Feel more due to peripheral vertigo than central today since has drastic improvement with medication today. Cannot rule out central cause. Her dizziness is improving. History of TIA Plan: Pending MRI of the brain with and without. Patient was given aspirin 325 once in the ED. Patient was started on aspirin 81 mg by the primary team as well as Lipitor 20 mg daily. The patient was not on any antiplatelets prior to this. If the patient does have stroke will start the patient on dual antiplatelet of aspirin and Plavix. But if no stroke then no antiplatelets from neurological perspective unless primary would like to continue it. If negative for stroke and patient symptoms is improving consider ENT follow-up as outpatient and consider vestibular rehab therapy as outpatient. Continue neuro checks Cardiac monitoring PT OT and BRAKE LINING FINISHER are consulted Continue meclizine 25 mg 1 tablet 4 times a day scheduled for 7 days and after that when necessary. She is on Zofran 4 mg when necessary. We'll defer the rest of the medical measure the primary team For DVT prophylaxis the patient was started on subcu heparin 5000 units every 12 hours The plan was discussed with the patient. Time with Patient: Less than 30
--- NOTE | 2023-10-22 15:01 | MR ---
EXAMINATION TYPE: MR brain wo/w con DATE OF EXAM: 10/22/2023 12:56 PM CLINICAL INDICATION:Female, 52 years old with history of vertigo. posterior circulation stroke, Verti go, numbness left side of mouth. COMPARISON: 10/21/2023. TECHNIQUE: Multi planar, multi sequence imaging was performed through the brain including: T1, T2, In version recovery, susceptibility weighted imaging and gradient echo imaging and Diffusion weighted im aging. The patient was then given intravenous contrast and multi planar, T1 fat-saturation images wer e obtained. IV Contrast: 11 cc Gadavist FINDINGS: Subtle focus of high or DWI and low ADC signal with associated higher FLAIR signal series 3 03 image 80 The [place]-white junctions, ventricular system, basal cisterns appear unremarkable. Diffusion-weighted imaging shows no evidence of restricted diffusion to suggest acute/subacute infarct. Intracranial ar terial flow voids are maintained. Midline structures show no abnormality. Scattered foci of high T2 s ignal intensity are seen within the periventricular white matter. The susceptibility weighted images do not reveal any evidence for micro-hemorrhage. After administration of gadolinium, no abnormal enha ncement is seen. The bone marrow signal is within normal limits. Paranasal sinuses and mastoid air cells: No significant paranasal sinus disease. Visualized orbits: Orbital contents are intact. IMPRESSION: 1. Subtle foci of increased DWI/low ADC signal along the left cerebellar peduncle concerning for acut e/subacute CVA. Correlate with patient's symptoms. No evidence of intracranial mass or abnormal enhan cement. 2. Nonspecific white matter changes, likely related to small vessel ischemic disease.
[2023-10-23] MEDS: SODIUM CHLORIDE 0.9% 1,000 ML IV SCH ×2 (05:25→11:05)
[2023-10-23] MEDS: HEPARIN SODIUM,PORCINE 5,000 UNIT/ML 1 ML VIAL SQ SCH (07:57)
[2023-10-23] MEDS: MECLIZINE 25 MG TAB PO SCH ×2 (07:58→12:09)
[2023-10-23] MEDS: ASPIRIN 81 MG PO SCH (07:58)
[2023-10-23] MEDS: ATORVASTATIN 20 MG TAB PO SCH (07:58)
[2023-10-23] MEDS: FAMOTIDINE 20 MG/2 ML VIAL IV SCH (07:58)
--- NOTE | 2023-10-23 11:29 | P.PN ---
Subjective Progress Note Date: 10/23/23 I am following-up with patient and she is feeling much better today compared to initial presentation. She is ambulating better and dizziness is better. Has some diplopia. No further nausea or vomiting. Continues to have numbness over the left side of tongue. Objective - Vital Signs Vital signs: Vital Signs Temp 97.5 F L 10/23/23 07:53 Pulse 76 10/23/23 07:53 Resp 14 10/23/23 07:53 BP 157/76 10/23/23 07:53 Pulse Ox 100 10/23/23 07:53 FiO2 Intake & Output 10/22/23 10/23/23 10/23/23 18:59 06:59 18:59 Intake Total 358 120 590 Balance 358 120 590 Intake: IV 10 Invasive Line 1 10 Oral 358 120 580 Other: Voiding Method External Catheter Toilet Toilet # Voids 1 2 - Exam GENERAL: The patient is sitting in a recliner chair and is not in acute distress. NEUROLOGICAL: Higher mental function: The patient is awake, alert, oriented to self, place and time. Patient is following commands. No aphasia and no neglect. Cranial nerves: The pupils are round, equal and reactive to light. Visual gutierrez are full to confrontation throughout. Extraocular movement is intact and no nystagmus Facial sensation is normal to touch throughout. The facial strength is normal throughout. Tongue is midline and moved [id number] without any difficulty. No dysarthria is noted. Shoulder shrug is normal bilaterally. Motor: Gait is normal.The strength is 5/5 throughout. Normal tone and bulk. Cerebellum: Normal finger to nose and heel to george bilaterally. Sensation: Sensation is normal to touch throughout. Reflexes (right/left): 2+ throughout. Plantars are downgoing bilaterally. Some of the workup during this hospital visit consisted of: Lipid panel triglycerides 28, cholesterol is 197, LDL is 105 and HDL is 50 TSH is 0.884 [address]c is 5.6. CT of the head was negative for any acute processes. CT angiography of the head and neck did not show any large vessel occlusion. 2D Echo was reported as ejection fraction of 55-60%. Negative bubble study. Mild to moderate tricuspid regurgitation. MR the brain is reported as septal foci of increased DWI/low ADC signal along the left cerebellar peduncle concerning for acute/subacute CVA. Correlate with the patient's symptoms. No evidence of intracranial mass or abnormal enhancement. Nonspecific white matter changes, likely related to small vessel ischemic disease. I personally spoke with the reading radiologist that read the study(Dr. Guajardo) and he felt "was a soft call" . I spoke to him that I personally felt to be artifact and he agreed. He wrote an addendum stating that septal of increased DWI KB alternatively represent artifact and short-term follow-up in one month with MRI the brain could be considered. - Labs CBC & Chem 7: 10/22/23 07:07 10/22/23 07:07 Assessment and Plan Assessment: This is a 52-year-old woman who presents because of dizziness and numbness. She states she has numbness over left side of the tongue. Her dizziness is mostly with movement and she feels the room is spinning. She has nausea vomiting. On examination she has nystagmus looking to the right and left. Acute vertigo with numbness: Feel more due to peripheral vertigo than central today since has drastic improvement with medication today. My the brain shows small foci artifact over the left cerebellar peduncle and no obvious acute or subacute CVA. Her dizziness is improving. History of TIA Plan: Patient was given aspirin 325 once in the ED. Patient was started on aspirin 81 mg by the primary team as well as Lipitor 20 mg daily. The patient was not on any antiplatelets prior to this. Patient does not need dual antiplatelets because no obvious acute or subacute cva. Regarding the ASA, I feel it is debatable and feel more likely peripheral vertigo causing her symptoms and will defer long use of ASA to outpatient neurologist. I notified her to follow-up with ENT and neurologist as outpatient. Also recommend repeat MRI Brain if continues to have symptoms and consider thin slices of brainstem as outpatient. Consider vestibular rehab therapy as outpatient. Continue neuro checks Cardiac monitoring PT OT and MANAGER PRINT are consulted Continue meclizine 25 mg 1 tablet 4 times a day scheduled for 7 days and after that when necessary. She is on Zofran 4 mg when necessary. We'll defer the rest of the medical measure the primary team For DVT prophylaxis the patient was started on subcu heparin 5000 units every 12 hours The plan was discussed with the patient, her who is at bedside. Also discussed with primary team. There is no further neurological work-up. Time with Patient: Less than 30
[2023-10-23 12:19] VITALS: RESP 16; TEMP 97.3
[2023-10-23 16:21] VITALS: BP 162/81; PULSE 82
--- NOTE | 2023-10-23 22:54 | P.DS ---
Providers Date of admission: 10/21/23 11:40 Attending physician: Jose Higuera Consults: 10/21/23 11:35 Consult Physician Routine Consulting Provider: Keron Garza Consult Reason/Comments: code stroke, vertigo, left facial numbness Do you want consulting provider notified?: Yes Primary care physician: Physician Nonstaff Hospital Course: Diagnoses: Acute onset of vertigo and left-sided facial numbness, stroke less likely by neurologist, most likely peripheral vertigo by neurologist and recommended ENT evaluation outpatient Recurrent vomiting could be secondary to above. Resolved and patient Tolerated diet Dehydration secondary to above. Resolved Obesity with BMI of 36.5. History of stroke/TIA Permissive hypertension Hospital course: This is a pleasant 52 years old female with past medical history of multiple medical problems. She has history of stroke in 2011, at that time she had blurred vision and aphasia. Currently she is not taking any antiplatelet therapy. Patient presents because of new onset of vertigo and everything was spinning and she describes since 8:30 in morning. Also associated with numbness on her left side of the cheek and tongue happened at the same time. Patient evaluated by neurologist, she had extensive workup, MRI of the brain: Subtle foci of increased DWI/low ADC signal along the left cerebellar peduncle concerning for acute/subacute CVA. I discussed the case with the neurologist Dr. Garza who states to the patient and me the MRI of the brain actually is negative and he referred to the addendum at the top stating:The subtle foci of increased DWI cou ld alternatively represent artifact and short-term follow-up in one month with MRI brain should be considered As per neurologist (Patient does not need dual antiplatelets because no obvious acute or subacute cva. Regarding the ASA, I feel it is debatable and feel more likely peripheral vertigo causing her symptoms and will defer long use of ASA to outpatient neurologist. I notified her to follow-up with ENT and neurologist as outpatient. Also recommend repeat MRI Brain if continues to have symptoms and consider thin slices of brainstem as outpatient. Consider vestibular rehab therapy as outpatient), because we wanted to follow-up recommendation of the neurologist, Patient provided with short course of aspirin and off to cover her until she sees her primary doctor is and she verbalized understanding and acceptance. Also the above recommendation by the neurologist and the radiologist and again she verbalized understanding and acceptance reviewed risks and benefits explained for medications On the day of discharge patient reports improvement and today she told me her symptoms significantly improved. Also her nausea vomiting resolved and she can tolerate oral diet. Diet was advanced and she tolerated regular diet in the afternoon and therefore she was cleared for discharge. Patient denies chest pain or dyspnea no other new symptoms and she wants to go home today. Was cleared for discharge by neurologist as above. Problems and management plan were discussed with the patient and he verbalized understanding and acceptance Patient was found stable and can be discharged home in guarded prognosis however he needs follow-up as an outpatient. Patient was instructed to follow up with PCP within one week and patient agrees (she has the contact information for her on PCP and she will follow up as instructed) Patient was instructed to follow up with the neurologist Dr. Landin in 1-2 weeks and she agrees and with ENT Dr. Avitia in 1 week after discharge and she agrees as well Physical exam Gen: patient is a AAOx3, no distress CVS: S1-S2, RRR, no murmur Lungs: B/L CTA, no wheezing Abdomen: soft, no distention, no tenderness, positive bowel sounds Extremity: no leg edema or induration Time spent more than 35 minutes Patient Condition at Discharge: Fair Plan - Discharge Summary New Discharge Prescriptions: New Atorvastatin [Lipitor] 20 mg PO DAILY #30 tab Acetaminophen Tab [Tylenol] 325 mg PO Q6HR PRN tab PRN Reason: Fever And/ Or Pain Aspirin EC [Ecotrin Low Dose] 81 mg PO DAILY 15 Days #15 tab Meclizine [Antivert] 25 mg PO QID #20 tab Discharge Medication List Acetaminophen Tab [Tylenol] 325 mg PO Q6HR PRN tab 10/23/23 [Rx] Aspirin EC [Ecotrin Low Dose] 81 mg PO DAILY 15 Days #15 tab 10/23/23 [Rx] Atorvastatin [Lipitor] 20 mg PO DAILY #30 tab 10/23/23 [Rx] Meclizine [Antivert] 25 mg PO QID #20 tab 10/23/23 [Rx] Follow up Appointment(s)/Referral(s): Kylie Landin MD [Medical Doctor] - 2 Weeks Nonstaff,Physician [Primary Care Provider] - 1-2 days Steve Avitia MD [STAFF PHYSICIAN] - 1 Week (ENT doctor ) Patient Instructions/Handouts: Ischemic Stroke (DC), Magnetic Resonance Imaging (DC) Activity/Diet/Wound Care/Special Instructions: heart healthy diet activity is restricted till you see your doctor we recommend repeat MRI Brain if continues to have symptoms and consider thin slices of brainstem as outpatient. Consider vestibular rehab therapy as outpatient we recommend to discuss with your primary care doctor and neurologist whether to continue asprin or stop it Discharge Disposition: HOME SELF-CARE
== END 2023-10-23 16:14 | disposition home or self-care (01) | DRG 149 ==
LOC: EC 09:57 → 3SCARD 11:40
PROVIDERS: ADMIT Hospitalist; ATTEND Hospitalist
DX: H81.399 Other peripheral vertigo, unspecified ear (principal); R29.810 Facial weakness; H55.00 Unspecified nystagmus; E86.0 Dehydration; R11.2 Nausea with vomiting, unspecified; E66.9 Obesity, unspecified; H93.19 Tinnitus, unspecified ear; Z68.36 Body mass index [BMI] 36.0-36.9, adult; I15.9 Secondary hypertension, unspecified; E78.00 Pure hypercholesterolemia, unspecified; Z86.73 Personal history of transient ischemic attack (TIA), and cerebral infarction without residual deficits; I34.0 Nonrheumatic mitral (valve) insufficiency; H53.2 Diplopia
CPT/HCPCS: 36415; 70450; 70496; 70498; 70553; 71046; 74018; 80048; 80053; 80061; 82550; 83036; 84443; 84484; 85025; 85610; 85730; 93005; 93306; 96361; 96374; 96375; 99291